=== PATIENT | male | born 1985 | race African-American/Black ===

== ENCOUNTER 2020-09-03 22:26 | Emergency (ER) | payer MEDICARE, MEDICAID ==
[~2020-09-03] VITALS: Ht 182.9 cm; Wt 131.0 kg
[2020-09-03 23:53] LABS: HEMATOCRIT. 41.6 % (42.0-52.0); HEMOGLOBIN. 14.4 g/dL (14.0-18.0); MEAN CORPUSCULAR HEMOGLOBIN 31.4 pg (28.0-32.0); MEAN CORPUSCULAR VOLUME 90.8 fL (80.0-94.0); MEAN PLATELET VOLUME 8.5 fl (7.4-10.4); PLATELET 181 x1000/uL (130-400); RED BLOOD CELL COUNT 4.58 mill/uL (4.7-6.1); RED CELL DISTRIBUTION WIDTH 13.3 % (11.6-14.6)
[2020-09-03 23:55] LABS: CHLORIDE 102 mEq/L (98-107)
[2020-09-04 00:17] LABS: PLATELET ESTIMATE NORMAL
[2020-09-04] MEDS: SODIUM CHLORIDE 0.9% 1,000 ML IV ONE (00:22)
[2020-09-04] MEDS: IBUPROFEN 600MG TABLET PO STA (00:22)
[2020-09-04] MEDS: ACETAMINOPHEN 325MG TABLET PO STA (00:22)
[2020-09-04] MEDS: SODIUM CHLORIDE 0.9% 1,000 ML IV NR (01:21)
[2020-09-04 02:34] VITALS: BP 125/81
== END 2020-09-04 02:36 | disposition home or self-care (01) ==
LOC: ER 22:26
DX: U07.1 COVID-19 (principal); R50.9 Fever, unspecified
CPT/HCPCS: 36415; 71045; 80053; 85025; 87040; 87635; 96360; 96361; 99284; J7030